=== PATIENT | female | born 1950 | race African-American/Black ===

== ENCOUNTER 2020-11-19 13:14 | Emergency (ER) | payer OTHER ==
[~2020-11-19] VITALS: Ht 162.6 cm; Wt 59.1 kg
[~2020-11-19 13:14] MED LIST: AMOX500C2 PO; FERR142T6 PO
[2020-11-19 13:46] VITALS: BP 138/53
== END 2020-11-19 14:28 | disposition home or self-care (01) ==
LOC: EMS 13:21
DX: I83.892 Varicose veins of left lower extremity with other complications (principal); Z90.710 Acquired absence of both cervix and uterus
CPT/HCPCS: 99282; Z7502